=== PATIENT | male | born 1980 | race American Indian/Alaskan Native ===

== ENCOUNTER 2022-03-15 15:59 | Emergency (ER) | payer SELFPAY ==
--- NOTE | 2022-03-15 16:35 | Emergency Department Report ---
<COOPER NUNEZ - Last Filed: 03/15/22 20:57> ED CPR HPI - General Chief Complaint: Cardiac Arrest/CPR Stated Complaint: CARDIAC ARREST Time Seen by Provider: 03/15/22 16:21 - Intubation Sedative: none Laryngoscope: Cherrie Size: 4 ET Tube Size: 7.5 Tube Secured Depth (cm): 24 Tube Secured Location: lips Tube Placement Confirmation: visualized tube passing t, equal breath sounds bilat Intubation Complications: other (intubated succesfully on 2nd attempt) ED Disposition Clinical Impression: Cardiopulmonary arrest Disposition: 20 Condition: Stable Referrals: PRIMARY CARE, [Primary Care Provider] - 3-5 Days <[place] - Last Filed: 03/17/22 21:48> ED CPR HPI - General Source: EMS Mode of arrival: Stretcher Limitations: Other - History of Present Illness Initial Comments: 42 yo M brought in by EMS with CPR and code in progress after patient was pickup on the stress with difficulty breathing without chest pain. Pt told the EMS that he has history of hypertension and not taken any medication at this point. Pt lost his pulse shortly after he was been loaded into the ambulance. No iv line w as established. CPR was started immediately by the EMS. Pt was connected to environmental monitoring technician immediately and was given first epi 1mg IV x 1 at 16:00. Bicarb given at 16:01 PM, and rhythm check at 16:02 and was asystole. Pt was given the next 5 rounds of epi between 16:02 and 16:12 PM with no opportunity of ROSC. His pupil was noted to be fully dilated and fixed with no chance of any meaningful neurological outcome. And at this point at 16:13 PM CPR and other medication discontinued and patient pronounced . Differential diagnosis could be but not limited to myocardial infarction, pulmonary embolism, or cerebrovascular accident. No family member around at this time but will continue to look out for any member of this family to show up. ED Review of Systems ROS: Stated complaint: CARDIAC ARREST Other details as noted in HPI Comment: Unobtainable due to pts medical conditions (Cardiopulmonary arrest with CPR in progress) ED Physical Exam - General Limitations: Other (Cardiopulmonary arrest with CPR in progress) - Eye Eye exam: Present: other (Pupil dilated and fixed) ED Medical Decision Making - EKG Data -: EKG Interpreted by Me EKG shows normal: sinus rhythm Rate: tachycardia - EKG Data 03/15/22 17:09 None noted with sinus tachycardia at a rate of 108 bpm with left axis deviation and this abnormal twelve-lead. - Medical Decision Making Brought in with cardiopulmonary arrest with CPR in progress. Pt was connected to environmental monitoring technician immediately and was given first epi 1mg IV x 1 at 16:00. Bicarb given at 16:01 PM, and rhythm check at 16:02 and was asystole. Pt was given the next 5 rounds of epi between 16:02 and 16:12 PM with no opportunity of ROSC. His pupil was noted to be fully dilated and fixed with no chance of any meaningful neurological outcome. And at this point at 16:13 PM CPR and other medication discontinued and patient pronounced . Differential diagnosis could be but not limited to myocardial infarction, pulmonary embolism, or cerebrovascular accident. Critical Care Time: No Critical care attestation.: If time is entered above; I have spent that time in minutes in the direct care of this critically ill patient, excluding procedure time. ED Disposition Is pt being admited?: No Does the pt Need Aspirin: No Time of Disposition: 17:22
[2022-03-15] MEDS ORDERED: SODIUM BICARB 8.4% 50 MEQ/50 ML SYRINGE IV ONE (16:38)
[2022-03-15] MEDS ORDERED: EPINEPHrine 1 MG/10 ML SYRINGE ONE (16:38)
[2022-03-15] MEDS ORDERED: HALOPERIDOL LACTATE 5 MG/1 ML INJ ONE (16:38)
[2022-03-15] MEDS ORDERED: diphenhydrAMINE 50 MG/ML VIAL ONE (16:39)
[2022-03-15] MEDS ORDERED: LORazepam 2 MG/ML VIAL ONE (16:39)
== END 2022-03-15 23:56 ==
LOC: ED 15:59
DX: I46.9 Cardiac arrest, cause unspecified (principal)
CPT/HCPCS: 31500; 92950; 99285; J0171; J1200; J1630; J2060